=== PATIENT | female | born 1945 | race Caucasian/White ===

== ENCOUNTER 2019-12-15 00:02 | Outpatient (CLI) | payer OTHER, SELFPAY ==
[2019-12-15 15:58] LABS: SARS-CoV-2 RNA PCR Negative
== END 2019-12-15 00:03 | disposition home or self-care (01) ==
LOC: ANHCOVIDDT 00:02
PROVIDERS: PCP Internal Medicine; Visit Provider Internal Medicine Gastroenterology
DX: Z01.818 Encounter for other preprocedural examination (principal); Z11.59 Encounter for screening for other viral diseases
CPT/HCPCS: 87635; C9803; U0003

== ENCOUNTER 2019-12-17 00:54 | Day surgery (SDC) | payer OTHER, SELFPAY ==
[2019-12-08 13:41] VITALS: BMI 41.6
[2019-12-17 06:23] VITALS: BP 149/86; PULSE 81; RESP 20; TEMP 36.6; O2SAT 97
[2019-12-17] MEDS: LACTATED RINGERS 1,000 ML 150 ML IV CONT (06:51)
[2019-12-17 07:02] LABS: Glucose Point of Care 119 (65-105)
--- NOTE | 2019-12-17 07:25 | WPDANESEPPF ---
Anes - Initial Pre Proc Eval Procedure: Operation Date: 12/17/19 07:30 Proposed Procedures p Screening Colonoscopy - Raffy Rodríguez MD Date/Time: 12/17/19 07:25 Surgeon: Raffy Rodríguez MD Pre Op Diagnosis: hx of colon polyps Patient Data Age: 74 Gender: F Height: 5 ft 4 in Weight: 109.1 kg Last Vital Signs Temp 97.9 F 12/17/19 06:23 Pulse 81 12/17/19 06:23 Resp 20 12/17/19 06:23 BP 149/86 H 12/17/19 06:23 Pulse Ox 97 12/17/19 06:23 Allergies Allergy/AdvReac Type Severity Reaction Status Date / Time Sulfa (Sulfonamide Allergy Mild Rash Unverified 12/17/19 06:18 Antibiotics) lidocaine Allergy Rash Verified 12/17/19 06:18 [From Aspercreme (lidocaine)] Home Medications Medication Instructions Recorded Confirmed Type aspirin [Aspirin Low Dose] 81 mg PO DAILY 12/08/19 12/08/19 History chlorthalidone 25 mg PO DAILY 12/08/19 12/08/19 History cholecalciferol (vitamin D3) 125 mcg PO DAILY 12/08/19 12/08/19 History ezetimibe 10 mg PO DAILY 12/08/19 12/08/19 History ferrous sulfate 65 mg PO BID 12/08/19 12/08/19 History levothyroxine 75 mcg PO DAILY 12/08/19 12/08/19 History lisinopril 10 mg PO DAILY 12/08/19 12/08/19 History magnesium oxide 250 mg PO DAILY 12/08/19 12/08/19 History metformin 1,000 mg PO DAILY 12/08/19 12/08/19 History lr-kk-nscu-FA-Ca carb-vit K 1 tablet PO DAILY 12/08/19 12/08/19 History [Women's Multivitamin] omeprazole 20 mg PO DAILY 12/08/19 12/08/19 History vit C,X-Ck-dhezk-lutein-zeaxan 1 tablet PO BID 12/08/19 12/08/19 History [PreserVision AREDS-2] Laboratory Tests 12/17/19 06:31 POC Capillary Glucose 119 mg/dl H mg/dl (65-105) Patient hx anesthesia problems: none Family hx anesthesia problems: none PMFSH Past Medical History Medical History (Updated 12/17/19 @ 07:24 by Rahul Morse MD) Diabetes GERD (gastroesophageal reflux disease) Hyperlipidemia Morbid obesity LEÓN (obstructive sleep apnea) Social History Social History Gender identity (if verbalized by the patient): Female Anes - Eval Final PreProcedure Day of Procedure 12/17/19 07:25 Patient weight: morbidly obese Heart: regular rate and rhythm Lungs: clear to auscultation Airway: Mallampati scale class III Neurological: alert and oriented Last oral intake: >/= 8 hours ASA classification: III Emergent: no Anesthetic plan: proceed Anesthesia type and monitoring: general GIVS and standard monitoring Informed Consent: The patient's anesthetic plan and its attendant risks and benefits were discussed with the patient/family/POA. Questions were solicited and answers provided to the satisfaction of the patient/family/POA.
--- NOTE | 2019-12-17 08:10 | WPDGICN ---
Assessment and Plan Assessment and plan (1) History of colon polyps: Code(s): Z86.010 - Personal history of colonic polyps Status: Acute Assessment and Plan: Because of prior history of colon polyp screening colonoscopy will be performed today. Follow-up colonoscopy at 5 year intervals is advised. (2) Rectal bleeding: Code(s): K62.5 - Hemorrhage of anus and rectum Status: Acute Assessment and Plan: Rectal bleeding may represent hemorrhoidal bleeding plan is to evaluate this at the time of colonoscopy. High-fiber diet is suggested. (3) Sciatica: Code(s): M54.30 - Sciatica, unspecified side Status: Acute GI Consult Note Consult date/time: 12/17/19 08:10 HPI: Janeth Dougherty is a 74 year old female Seen in evaluation at the request of Dr. Kortney Darby. Patient presents for screening colonoscopy. She is known to have colon polyps from previous colonoscopy 10 years ago. Her current weight appetite bowel movements are normal. Over the last several months has had difficulty with [employer] adequate for which she was treated with ibuprofen. She is notice bright red blood per rectum with wiping on a few occasions. Patient denies abdominal pain. Her bowel habits are normal and regular. Family history is noncontributory. Review of Systems Review of Systems: All systems reviewed & are unremarkable except as noted in HPI and below PMFSH Past Medical History Medical History Diabetes GERD (gastroesophageal reflux disease) Hyperlipidemia Morbid obesity LEÓN (obstructive sleep apnea) Social History Social History Gender identity (if verbalized by the patient): Female Meds Home Medications and Allergies Home Medications Medication Instructions Recorded Confirmed Type aspirin [Aspirin Low Dose] 81 mg PO DAILY 12/08/19 12/08/19 History chlorthalidone 25 mg PO DAILY 12/08/19 12/08/19 History cholecalciferol (vitamin D3) 125 mcg PO DAILY 12/08/19 12/08/19 History ezetimibe 10 mg PO DAILY 12/08/19 12/08/19 History ferrous sulfate 65 mg PO BID 12/08/19 12/08/19 History levothyroxine 75 mcg PO DAILY 12/08/19 12/08/19 History lisinopril 10 mg PO DAILY 12/08/19 12/08/19 History magnesium oxide 250 mg PO DAILY 12/08/19 12/08/19 History metformin 1,000 mg PO DAILY 12/08/19 12/08/19 History bo-bl-qjcz-FA-Ca carb-vit K 1 tablet PO DAILY 12/08/19 12/08/19 History [Women's Multivitamin] omeprazole 20 mg PO DAILY 12/08/19 12/08/19 History vit C,S-Bm-tzkxc-lutein-zeaxan 1 tablet PO BID 12/08/19 12/08/19 History [PreserVision AREDS-2] Allergies Allergy/AdvReac Type Severity Reaction Status Date / Time Sulfa (Sulfonamide Allergy Mild Rash Unverified 12/17/19 06:18 Antibiotics) lidocaine Allergy Rash Verified 12/17/19 06:18 [From Aspercreme (lidocaine)] Vital Signs Vital Signs - 24 hr 12/17/19 06:23 Temperature 36.6 C Pulse Rate 81 Respiratory Rate 20 Blood Pressure 149/86 H Pulse Oximetry 97 Exam Narrative: Exam Narrative: Physical exam reveals patient to be alert. Vital signs are stable. HEENT exam unremarkable. Lungs are clear to auscultation and percussion. Heart is without murmur or extra sounds. Abdominal exam bowel sounds are present soft nontender with no hepatosplenomegaly. Digital external rectal exam is normal.
[2019-12-17 08:12] VITALS: BP 93/50; PULSE 73; RESP 20; O2SAT 98
[2019-12-17 08:22] VITALS: BP 105/56; PULSE 71; RESP 22; O2SAT 98
[2019-12-17 08:32] VITALS: BP 132/65; PULSE 72; RESP 18; O2SAT 100
== END 2019-12-17 09:13 | disposition home or self-care (01) ==
PROVIDERS: PCP Internal Medicine; Visit Provider Internal Medicine Gastroenterology
PROC: 0DJD8ZZ Inspection of Lower Intestinal Tract, Via Natural or Artificial Opening Endoscopic (ICD-10-PCS; CPT 45378; principal; 2019-12-17 07:30)
DX: Z12.11 Encounter for screening for malignant neoplasm of colon (principal); D12.2 Benign neoplasm of ascending colon; D12.5 Benign neoplasm of sigmoid colon; D12.3 Benign neoplasm of transverse colon; K64.8 Other hemorrhoids; E11.9 Type 2 diabetes mellitus without complications; Z79.84 Long term (current) use of oral hypoglycemic drugs; G47.33 Obstructive sleep apnea (adult) (pediatric); K21.9 Gastro-esophageal reflux disease without esophagitis; K57.30 Diverticulosis of large intestine without perforation or abscess without bleeding; E66.01 Morbid (severe) obesity due to excess calories; Z68.41 Body mass index [BMI] 40.0-44.9, adult; Z88.2 Allergy status to sulfonamides
CPT/HCPCS: 45385; 88305; J2704; J7120